=== PATIENT | male | born 1970 | race Caucasian/White ===

== ENCOUNTER 2023-07-17 14:04 | Outpatient (CLI) | payer OTHER, SELFPAY ==
--- NOTE | 2023-07-17 14:00 | RT.EKG_ITS ---
APPROVED REPORT Exam: Resting ECG Reason for Exam: NPW baseline needed Patient Location: O HR:66 bpm ECG Measurements Heart Rate 66 AXIS WV 137 P 65 QRSd 90 QRS 35 QT 379 T 51 QTc 398 Conclusion Sinus rhythm...normal P axis, V-rate 50- 99 Normal Electrocardiogram
== END 2023-07-17 14:05 | disposition home or self-care (01) ==
LOC: DI.CARD 14:05
PROVIDERS: PCP Student in an Organized Health Care Education/Training Program; Visit Provider Internal Medicine Cardiovascular Disease
DX: I25.2 Old myocardial infarction (principal)
CPT/HCPCS: 93010

== ENCOUNTER 2023-10-19 06:11 | Day surgery (SDC) | payer OTHER, SELFPAY ==
--- NOTE | 2023-10-18 18:11 | W.ANESPRE ---
General Info Date of Service Date Performed: 10/19/23 Height: 5 ft 8 in Weight: 83.915 kg Body Mass Index (BMI): 28.1 Surgical Procedure: Operation Date: 10/19/23 07:35 Proposed Procedure Side Surgeon annita Norwood MD Meds Allergies and Home Medications Allergies Allergy/AdvReac Type Severity Reaction Status Date / Time No Known Drug Allergies Allergy Unknown Other (See Verified 10/19/23 06:21 Comment) Home Medication ?Medication ?Instructions ?Recorded aspirin 81 mg tablet,delayed 81 mg PO DAILY 07/09/23 release (Adult Aspirin Regimen) clopidogrel 75 mg tablet 75 mg PO DAILY 07/09/23 glipizide 5 mg tablet 5 mg PO DAILY 07/09/23 lisinopril 20 1 tab PO DAILY 07/09/23 mg-hydrochlorothiazide 25 mg tablet metformin 1,000 mg tablet 1,000 mg PO BID 07/09/23 metoprolol tartrate 50 mg tablet 50 mg PO BID 07/09/23 sildenafil 100 mg tablet 100 mg PO DAILY PRN 07/09/23 atorvastatin 80 mg tablet 40 mg PO QHS 10/09/23 Current Visit Medications: Current Medications Generic Name Dose Route Start Last Admin Trade Name Freq PRN Reason Stop Dose Admin Ringer's Solution 1,000 mls @ 80 mls/hr 10/19/23 06:00 IV 10/19/23 23:59 INFUSION FORMERLY [facility], 1928–1983 IV Miscellaneous Supplies 1 each 10/19/23 06:00 Iv Access IV 10/19/23 23:59 DIRECTED BONIFACIO Sodium Chloride 0 ml 10/19/23 06:00 Normal Saline Flush 10 Ml Syr IV 10/19/23 23:59 PRN PRN Sodium Chloride 0 ml 10/19/23 06:00 Normal Saline 10 Ml Vial IJ 10/19/23 23:59 DIRECTED PRN Sterile Water 0 ml 10/19/23 06:00 Water,Injection,Sterile 10 Ml Vial IJ 10/19/23 23:59 DIRECTED PRN PFSH Active Problems Active Problems: Problem Status Onset Code Coronary artery disease Chronic I25.10 Renal colic Acute N23 Blood in urine Acute R31.9 Gout Chronic M10.9 Engages in vaping Acute Z72.89 Mixed hyperlipidemia Acute E78.2 Erectile dysfunction Acute N52.9 Essential hypertension Acute I10 Hyperlipidemia Acute E78.5 Diabetes mellitus type 2, controlled, without complications Acute E11.9 Medical History Medical History Hx of myocardial infarction 2021 Tobacco Smoking/Tobacco Use Status: Former Tobacco Use Alcohol Alcohol Intake: never Substance Use Substance use: Never Substance use type: does not use Vital Signs and Lab Results Vital Signs Most Recent Vital Signs in EMR: Temp Pulse Resp BP Pulse Ox 36.6 C 60 16 143/82 H 98 10/19/23 06:39 10/19/23 06:39 10/19/23 06:39 10/19/23 06:39 10/19/23 06:39 Lab Results Blood Type / Crossmatch: No Data to Display Complete Blood Count: No Data to Display Complete Metabolic Panel: No Data to Display Liver Function Panel: No Data to Display Coagulation Panel: No Data to Display Cardiac Panel: No Data to Display Arterial Blood Gas: No Data to Display Venous Blood Gas: No Data to Display Pancreas Panel: No Data to Display Thyroid Panel: No Data to Display Infectious Disease: No Data to Display Blood Cultures: No Data to Display Toxicology Panel: No Data to Display Imaging and Studies Imaging and Studies Study information below may be from another EMR and interpreted by another provider. Please see original notes in EMR for more complete details. EKG Summary: 07/19: sinus. Anesthesia Assessment and Plan Anesthesia History Personal History: No History of Anesthesia Complications Family History: No Family History of Anesthesia Complications Exercise Tolerance Exercise Tolerance: Metabolic Equivalents>4 Cardiac & Pulmonary Exam Cardiac Exam: Normal S1/S2 Heart Sounds Pulmonary Exam: Clear Bilateral Breath Sounds Implantable Cardiac Device Does patient have a Pacemaker or an ICD?: No Airway Exam Known Difficult Airway: No Mallampati Class: 4 Mouth Opening: Narrow (< 3cm) Thyromental Distance: Less than 3 cm Facial Hair: Full [place] Range of Motion: Limited ROM Neck Circumference: Normal Teeth Condition: Normal Dentition ASA Classification ASA Score: ASA 3 Emergency Case?: No NPO Status NPO Status: NPO Clears >2 hours, Solids >8 hours Anesthesia Plan Resuscitation Status: Full Code Anesthesia Technique: General Anesthesia Airway Planned: Natural Airway Monitors Used: Standard Monitors Preoperative Comments:: 52 yo male for colo. Sig PMHX: CAD (2021 RCA stent, residual LAD disease, clopidogrel. good functional capacity), HTN (metoprolol, lisinopril, HCTZ), DM (glipizide, metformin. Last A1c elevated due to being off med, BS 180s this AM), former smoker (09/18). Denies Gerd. appropriately NPO.
--- NOTE | 2023-10-18 20:20 | W.PM.DSUDISC ---
Date of service: 10/19/23 Time of Service: 08:10 Discharge Plan Disposition Patient Disposition: Home Condition: Good Discharge Details Reason For Visit: screening colonsocopy Attending Provider: Atif Norwood Primary Care Provider: Sumit Hairston Home Meds and New Rx's Prescriptions: Continued aspirin [Adult Aspirin Regimen] 81 mg tablet,delayed release (DR/EC) 81 mg PO DAILY clopidogrel 75 mg tablet 75 mg PO DAILY glipizide 5 mg tablet 5 mg PO DAILY lisinopril-hydrochlorothiazide 20-25 mg tablet 1 tab PO DAILY metformin 1,000 mg tablet 1,000 mg PO BID metoprolol tartrate 50 mg tablet 50 mg PO BID sildenafil 100 mg tablet 100 mg PO DAILY PRN Rx Instructions: administer 30 minutes to 4 hours before activity atorvastatin 80 mg tablet 40 mg PO QHS Discharge Instructions Instructions: Colon polyps, Diverticulosis Additional Instructions: Juan we were able to do the colonoscopy today without any difficulty at all. Hope it was comfortable for you. I did find to remove a total of 6 polyps. All of these were quite small. None of them have any features that are worrisome to the naked eye. All of these polyps will be sent off for testing, and once I know the nature of them, the office will be in touch with recommendations for the timing of your next colonoscopy. If you need anything at all, please do not hesitate to call me at any point. 1. If tolerated, consume a soft, low fiber diet for 1-2 days. 2[address] Do not drive, drink alcohol, operate machinery, make critical decisions, or do activities that require coordination or balance for 24 hours. 3. Because air was put into your colon during the procedure, expelling air from your rectum (passing gas or farting) is normal. 4. You may not have a bowel movement for 1-3 days because of the colonoscopy prep. This is normal. 5. Go directly to the emergency room if you notice any of the following: Develop chills (warm to touch), or if you have a thermometer and your temperature is above 101 Difficulty breathing or difficultly swallowing Persistent vomiting Severe abdominal pain, other than gas cramps Severe chest pain Black, tarry stools Any bleeding ? exceeding one tablespoon 6. Call your physician if the site where your intravenous was started becomes red, swollen, painful, and warm to touch. 7. Your physician has reviewed your pre-procedure medications. Please continue to take those medications as previously ordered. You will be given specific information/education regarding any changes to your medications before leaving. Activity:: Activity as Tolerated Diet:: As Tolerated Discharge Orders Discharge Orders: Discharge Order (Routine); Ordered 10/18/23 Ordered By: Atif Norwood DS: Diagnosis Discharge Diagnosis (1) Encounter for screening colonoscopy: Status: Acute Asessment and Plan: Follow-up on polypectomy results
--- NOTE | 2023-10-18 20:21 | W.COLOREPORT ---
Date of service: 10/19/23 Time of Service: 08:12 Colonoscopy Report Date of procedure: 10/19/23 Pre-op diagnosis general: screening colonoscopy Post-op diagnosis procedure note: other (Diverticulosis, colon and rectal polyps) Procedure: colonocsopy with polypectomy Surgeon: Atif Norwood Anesthesia Type: General:No Airway Estimated blood loss (mL): 5 Pathology: other (0.25 cm rectal polyps x 3, 0.25 cm polyp in the ascending colon, 0.25 cm polyp at 50 cm, 0.5 cm polyp at 25 cm) Complications: None Disposition: same day Indications: Juan is a 52 year old man with a family history of colon cancer who needs a screening colonoscopy Prep: Miralax/Dulcolax Procedure Start Time: 07:40 Procedure End Time: 07:59 Retraction Time: 14 Findings: Sigmoid diverticulosis, 0.25 cm rectal polyps x 3, 0.25 cm polyp in the ascending colon, 0.25 cm polyp at 50 cm, 0.5 cm polyp at 25 cm Procedure Description: After the induction of monitored anesthetic care, and with the patient in left lateral decubitus position, I began by performing an external anorectal exam.? Perineum and skin were normal, as was the anal verge.? There was no evidence of external hemorrhoids.? Next, I performed a digital rectal exam.? I did not appreciate any abnormal findings.? Next, I advanced a colonoscope into the rectal vault.? I performed retroflexion.? This was normal.? In the midportion of the rectal vault were 3 flat polyps. Narrowband imaging was used to assist with analysis of all polyps. These all appeared consistent with hyperplastic polyps, but given history of adenomatous polyps in the past, I did remove these with cold forceps. They were all sent as a single specimen. There is no significant bleeding. Using insufflation, I then advanced the colonoscope beyond the rectal folds and into the sigmoid colon before advancing towards the cecum.? The quality of the prep was excellent.? The scope was noted to be in the cecum by identification of the ileocecal valve and appendiceal orifice.? I then began withdrawing the colonoscope using repeated irrigation as necessary for full evaluation of the colonic mucosa. There was a 0.25 cm flat polyp within the ascending colon, this was removed with cold forceps. There was minimal bleeding here as well. I also found polyps at 50 cm and 25 cm. The polp at 50 cm, was slightly bifurcated, but flat. This was completely excised in piecemeal.the polyp at 25 cm was more flat, and measured about 0.25 cm. Both of these polypectomy sites looked great. Once the scope was withdrawn to the level of the rectum, great care was taken to examine portions of the rectal folds.? There was a colonoscopic tattoo from his previous procedure. Several passes were taken across this area, and I did not see any signs of recurrent polyp here. Finally, the scope was withdrawn and the patient was brought to the same-day surgery recovery unit as the anesthetic wore off. ?The findings and instructions were shared with the patient prior to discharge. Edmond Bowel Prep Edmond Bowel Prep Right Colon: 3 Left Colon: 3 Transverse Colon: 3 Total Score: 9
[2023-10-19 06:39] VITALS: BP 143/82; PULSE 60; RESP 16; TEMP 36.6; O2SAT 98
[2023-10-19] MEDS: Lactated Ringers 1,000 ML 80 ML IV (06:42)
[2023-10-19 07:08] VITALS: BMI 28.1
--- NOTE | 2023-10-19 07:39 | BOWEL_PTH ---
PATIENT: Juan Fuller LOC: [facility] U#:[id number] AGE/SX: 52/M ROOM: RE10/19/[address]: Atif Norwood MD : 1970 BED: DIS: 10/19/2023 SPEC #: [id number] RECD: 10/19/23 12:00 STATUS: CHIRAG REPelon #: [id number] ROXANNE: 10/19/23 07:[address]: Atif Norwood DEPT: Surgical Specimen RECD BY: Keyla Young ENTERED: 10/19/23 12:02 SP TYPE: Bowel OTHR DR: Sumit Hairston Tissues: 1 - BIOPSY BOWEL 2 - BIOPSY BOWEL 3 - BIOPSY BOWEL 4 - BIOPSY BOWEL Procedures: GROSS AND MICRO LEVEL 4 Comments: [id number]
[2023-10-19 08:05] VITALS: BP 111/77; PULSE 62; RESP 16; TEMP 35.9; O2SAT 97
--- NOTE | 2023-10-19 08:17 | W.ANESPOSTOP ---
Postoperative Evaluation Date, Time and Location Date Performed: 10/19/23 Time Performed: 08:17 Patient Location: Day Surgery Unit Vital Signs Most Recent Imported Vital Signs: Most Recent Vital Signs Temp Pulse Resp BP Pulse Ox 35.9 C L 62 16 111/77 97 10/19/23 08:05 10/19/23 08:05 10/19/23 08:05 10/19/23 08:05 10/19/23 08:05 Pain Score Most Recent Pain Score: Most Recent Pain Score Pain Level 0 10/19/23 08:05 Assessment Mental Status: Awake (Alert & Oriented to Patient Baseline) Airway and Respiratory Function: Patent airway with normal (patient baseline) respiratory exam Cardiovascular Function: Hemodynamically Stable Hydration Status: Adequately Hydrated Nausea & Vomiting: No Nausea or Vomiting Pain: Pt. Denies Any Pain Peripheral Nerve Block: Patient did not receive a nerve block
[2023-10-19 08:34] VITALS: BP 141/84; PULSE 51; RESP 16; TEMP 36.2; O2SAT 99
== END 2023-10-19 08:50 | disposition home or self-care (01) ==
LOC: SUR 06:11
PROVIDERS: PCP Student in an Organized Health Care Education/Training Program; Visit Provider Surgery
PROC: 0DJD8ZZ Inspection of Lower Intestinal Tract, Via Natural or Artificial Opening Endoscopic (ICD-10-PCS; CPT 45378; principal; 2023-10-19 07:30)
DX: Z12.11 Encounter for screening for malignant neoplasm of colon (principal); I25.10 Atherosclerotic heart disease of native coronary artery without angina pectoris; D12.5 Benign neoplasm of sigmoid colon; K62.1 Rectal polyp; K57.30 Diverticulosis of large intestine without perforation or abscess without bleeding; K63.89 Other specified diseases of intestine
CPT/HCPCS: 45380; 88305; J2704

== ENCOUNTER 2024-01-07 13:27 | Outpatient (REF) | payer OTHER, SELFPAY ==
[2024-01-07 15:52] LABS: Anion Gap 11.6 mmol/L (3-11); BUN 11 mg/dL (7-18); CO2 27.4 mmol/L (21.0-32.0); CREATININE 1.1 mg/dL (0.70-1.30); Calcium 9.7 mg/dL (8.5-10.1); Chloride 102 mmol/L (98-107); Estimated GFR 80.77 (mL/min/1.73m2); Glucose 130 mg/dL (74-106); Magnesium 1.6 mg/dL (1.8-2.4); Potassium 3.9 mmol/L (3.5-5.1); Sodium 141 mmol/L (136-145)
[2024-01-07 16:14] LABS: COMMENT (LAB VIEW ONLY) 90.95 mg/dL; Microalb ug/mg Crea 6.9 ug/mg Cr
== END 2024-01-07 13:28 | disposition home or self-care (01) ==
LOC: NCHCN 13:27
PROVIDERS: PCP Student in an Organized Health Care Education/Training Program; Visit Provider Student in an Organized Health Care Education/Training Program
DX: E11.9 Type 2 diabetes mellitus without complications (principal); I10 Essential (primary) hypertension
CPT/HCPCS: 80048; 82043; 82570; 83735

== ENCOUNTER 2024-07-18 21:56 | Outpatient (REF) | payer OTHER, SELFPAY ==
[2024-07-18 22:01] LABS: Calculated LDL 38 mg/dL (<100); Cholesterol 146 mg/dL (<200); HDL Cholesterol 35 mg/dL (>or=40); Triglyceride 365 mg/dL (<150)
== END 2024-07-18 21:57 | disposition home or self-care (01) ==
LOC: NCHCN 21:56
PROVIDERS: PCP Student in an Organized Health Care Education/Training Program; Visit Provider Student in an Organized Health Care Education/Training Program
DX: E11.9 Type 2 diabetes mellitus without complications (principal)
CPT/HCPCS: 80061

== ENCOUNTER 2025-02-02 08:15 | Outpatient (CLI) | payer OTHER, SELFPAY | END 2025-02-02 08:16 | disposition home or self-care (01) | LOC: DI.CARD 08:15 | PROVIDERS: PCP Student in an Organized Health Care Education/Training Program; Visit Provider Registered Nurse | DX: I25.10 Atherosclerotic heart disease of native coronary artery without angina pectoris (principal) | CPT/HCPCS: 93010 ==